=== PATIENT | female | born 1990 | race Caucasian/White ===

== ENCOUNTER 2023-12-10 05:20 | Inpatient (IN) ==
--- NOTE | 2023-11-21 14:03 | Anesthesiology Consultation ---
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 No known infectious disease contacts in past 10 days or current infectious disease symptoms. No recent travel outside the country. History Surgery Operation Date: 12/10/23 07:30 Proposed Procedures p Section in LD (Delivery of Baby through Abdominal Incision) - Jessica Acevedo MD, FACOG Height/Weight Height: 5 ft 2 in Weight: 84.822 kg Allergies Allergy/AdvReac Type Severity Reaction Status Date / Time Penicillins Allergy Unknown Unknown Unverified 11/21/23 12:48 acetaminophen [From Vicodin] Allergy Itching Verified 11/21/23 12:48 buspirone Allergy Vomiting Unverified 11/21/23 12:48 hydrocodone [From Vicodin] Allergy Itching Verified 11/21/23 12:48 Medications Home Medications Medication Instructions Recorded Confirmed Last Taken zrbubacwwx-oakuosfkkvnuf-zxappwqz 1 tab PO Q6H PRN pain #20 tabs 10/23/23 11/21/23 Unknown 50 mg-325 mg-40 mg tablet calcium carbonate 200 mg calcium 200 mg PO QID PRN Acid Reflux 11/21/23 11/21/23 Unknown (500 mg) chewable tablet (Antacid (calcium carbonate)) calcium carbonate 500 mg calcium 500 mg PO BID 11/21/23 11/21/23 Unknown (1,250 mg) tablet diazepam 10 mg tablet (Valium) 10 mg PO BID PRN anxiety 11/21/23 11/21/23 Unknown magnesium 250 mg tablet 250 mg PO QPM 11/21/23 11/21/23 Unknown vits,calcium 21-iron fum 1 tab PO QAM 11/21/23 11/21/23 Unknown 14 mg iron-folic acid 400 mcg tablet ( Complete) Past Medical History Medical History (Updated 11/21/23 @ 14:02 by Kamryn Shaw PA-C) Wtmmy-3-jkbprkdsafz deficiency Carrier trait per OB records Patient's sister with hx of liver transplant FOB was tested and is negative per OB records Anxiety Asthma no inh Chicken pox hx History of gestational diabetes Migraine Past Family History Family History Family/Other Ovarian cancer Grandfather (Paternal) Myocardial infarction Diabetes Hypertension Father Diabetes Hypertension Grandfather (Maternal) Diabetes Hypertension Grandmother Diabetes Hypertension Denies family history of Breast cancer Colorectal cancer Past Surgical History Surgical History S/P section x 3 S/P cholecystectomy S/P wisdom tooth extraction Social History Smoking Status: Former smoker Do You Dip or Chew Tobacco: No Smoking End Date: prior to Hx Alcohol Use: No (not while . drinks socially when not ) Hx Substance Use: No substance use type: does not use
--- NOTE | 2023-12-06 16:15 | History & Physical Report ---
Date of Service December 06, 2023 Assessment & Plan (1) Previous delivery affecting : Plan: IUP at 39 weeks who presents for repeat C/S because of prior C/S x 3. Procedure and risks were reviewed with the patient and all questions answered to her satisfaction. History of Present Illness Primary Care Provider: NO PCP Patient is a 33 yo female EDC 12/15/23 who presents at 39 weeks for repeat C/S. Sha has had 3 prior C/S elsewhere and reports she has had no complications during her surgeries or . has been complicated by ongoing headaches and panic attacks for which she takes valium for the panic attacks which she has gotten from a prior provider. the attacks occur about once weekly. she also takes Fioricet for headache which can be daily at times. GBS- negative. 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 Allergies Allergy/AdvReac Type Severity Reaction Status Date / Time Penicillins Allergy Unknown Unknown Unverified 12/05/23 09:50 acetaminophen [From Vicodin] Allergy Itching Verified 12/05/23 09:50 buspirone Allergy Vomiting Unverified 12/05/23 09:50 hydrocodone [From Vicodin] Allergy Itching Verified 12/05/23 09:50 Home Medications Medication Instructions Recorded Confirmed Type vdameaivvl-juadooathavyg-zsesoulf 1 tab PO Q6H PRN pain #20 tabs 10/23/23 12/05/23 Rx 50 mg-325 mg-40 mg tablet calcium carbonate 500 mg PO BID 11/21/23 12/05/23 History calcium carbonate (Antacid 200 mg PO QID PRN Acid Reflux 11/21/23 12/05/23 History (calcium carbonate)) diazepam 10 mg tablet (Valium) 10 mg PO BID PRN anxiety 11/21/23 12/05/23 History magnesium 250 mg tablet 250 mg PO QPM 11/21/23 12/05/23 History vits,calcium 21-iron fum 1 tab PO QAM 11/21/23 12/05/23 History 14 mg iron-folic acid 400 mcg tablet ( Complete) Patient History Medical History (Updated 11/21/23 @ 14:02 by Kamryn Shaw PA-C) Ltntb-5-scgyepyczqg deficiency Carrier trait per OB records Patient's sister with hx of liver transplant FOB was tested and is negative per OB records Asthma no inh History of gestational diabetes Chicken pox hx Anxiety Migraine Surgical History (Updated 12/06/23 @ 16:27 by Jessica Acevedo MD, FACOG) S/P wisdom tooth extraction S/P cholecystectomy S/P section x 3 Family History Family/Other Ovarian cancer Grandfather (Paternal) Myocardial infarction Diabetes Hypertension Father Diabetes Hypertension Grandfather (Maternal) Diabetes Hypertension Grandmother Diabetes Hypertension Denies family history of Breast cancer Colorectal cancer Social History Smoking Status: Former smoker Tobacco Type: Cigarettes and E-cigarettes / Vaping Second Hand Exposure: No; Do You Dip or Chew Tobacco: No; Hx Alcohol Use: No (not while . drinks socially when not ) Hx Substance Use: No Preferred Language: Yoruba Communication Ability: Effective Bog Cutter Required: No Beliefs That Will Affect Care: None marital status: marital status details: JENA [phone] Current Living Situation: Family and Significant Other Current Living Situation Comment: [place], 2 kids, 1 cat current occupational status: employed current occupation: Technology Professional Feels Safe at Home: Yes Assistive Devices: Contacts and Glasses Review of Systems All systems reviewed & are unremarkable except as noted in HPI & below Physical Exam Constitutional: WD/WN, vitals as above Respiratory: normal respiratory effort, lungs clear to auscultation Cardiovascular: RRR, no murmur, no edema Psychiatric: A+Ox3, euthymic affect Genitourinary: OB Exam Abdomen: + fundal height (term), + heart tones (150) and + vertex; no regular contractions Coding Level of Care Code None Diagnoses Previous delivery affecting O34.219
[~2023-12-10 05:20] MED LIST: ALLERGY Noted to ORDERED Medication SCH
[2023-12-10] MEDS ORDERED: LIDOCAINE 1% LOCAL 20 ML VIAL INFIL PRN (05:22)
[2023-12-10] MEDS ORDERED: OXYTOCIN 30 UNITS/NSS 30 UNITS/500 ML BAG IV PRN (05:22)
[2023-12-10] MEDS ORDERED: LACTATED RINGER'S 1,000 ML IV PRN (05:22)
[2023-12-10] MEDS: LACTATED RINGER'S 1,000 ML IV SCH ×2 (05:57→19:46)
[2023-12-10 06:15] LABS: Basophils # (auto) 0.06 K/uL (0.00-0.20); Basophils % (auto) 0.4 %; Eosinophils # (auto) 0.21 K/uL (0.00-0.50); Eosinophils % (auto) 1.5 %; Hematocrit (blood only) 31.3 % (37.0-47.0); Hemoglobin 10.6 g/dl (12.0-16.0); Immature Granulocytes # (auto) 0.08 K/uL (0.01-0.20); Immature Granulocytes % (auto) 0.6 %; Lymphocytes # (auto) 2.66 K/uL (1.20-3.40); Lymphocytes % (auto) 19.3 %; Mean Corpuscular Hemoglobin 29.2 pg (25.0-34.0); Mean Corpuscular Hgb Conc 33.9 g/dL (32.0-36.0); Mean Corpuscular Volume 86.2 fL (80.0-100.0); Mean Platelet Volume 11.2 fL (9.4-12.4); Monocytes # (auto) 0.91 K/uL (0.11-0.59); Monocytes % (auto) 6.6 %; Neutrophils # (auto) 9.85 K/uL (1.40-6.50); Neutrophils % (auto) 71.6 %; Platelet Count 284 K/uL (130-400); RDW Coefficient of Variation 13.2 % (11.5-14.5); Red Blood Count 3.63 M/uL (4.20-5.40); White Blood Count 13.77 K/ul (4.8-10.8)
[2023-12-10] MEDS ORDERED: SODIUM CHLORIDE 0.9% 250 ML IV PRN (06:16)
--- NOTE | 2023-12-10 07:09 | History & Physical Bridge Note ---
Date of Service December 10, 2023 History & Physical Bridge Note I have examined the patient, reviewed the History & Physical and in the interval since the performance of the History & Physical I have noted the following changes of clinical significance: no changes noted
[2023-12-10] MEDS ORDERED: Nursing to Pharmacy Communication SCH ×2 (07:30→13:45)
[2023-12-10] MEDS ORDERED: MoRPHine SULFATE PF 1 MG/ML 10 ML AMP/VIAL ONE (07:35)
[2023-12-10] MEDS ORDERED: ePHEDrine sulfate 50 MG/ML AMP IV PRN (07:38)
[2023-12-10] MEDS ORDERED: MEPERIDINE HCL 25 MG/ML CARP/VIAL IV PRN (07:38)
[2023-12-10] MEDS ORDERED: ONDANSETRON INJ 2 MG/ML 2 ML VIAL IV PRN (07:38)
[2023-12-10] MEDS ORDERED: PROMETHAZINE HCL 6.25 MG in SODIUM CHLORIDE 0.9% 50 ML IV PRN (07:38)
[2023-12-10] MEDS ORDERED: LACTATED RINGER'S 500 ML IV PRN (07:38)
[2023-12-10] MEDS ORDERED: METOCLOPRAMIDE HCL 10 MG in SODIUM CHLORIDE 0.9% 50 ML IV PRN (07:38)
[2023-12-10] MEDS ORDERED: NALOXONE HCL 0.4 MG/1 ML VIAL/CARP IV PRN (07:38)
[2023-12-10] MEDS ORDERED: HYDROmorphone INJ 0.5 MG/0.5 ML SYR IV PRN (07:38)
[2023-12-10] MEDS ORDERED: diphenhydrAMINE 50 MG/ML VIAL IV PRN (07:38)
[2023-12-10] MEDS ORDERED: NALOXONE HCL 0.08 MG in SYRINGE 1.8 ML IV PRN (07:38)
[2023-12-10] MEDS ORDERED: NALBUPHINE HCL 5 MG in SYRINGE 0 ML IV PRN (07:38)
[2023-12-10] MEDS ORDERED: NALOXONE HCL 1 MG in SODIUM CHLORIDE 0.9% 1,000 ML IV PRN (07:38)
[2023-12-10] MEDS ORDERED: ACETAMINOPHEN 1,000 MG/100 ML VIAL IV PRN (07:39)
[2023-12-10] MEDS: CITRIC ACID/SODIUM CITRATE 15 ML UDC PO SCH (07:43)
[2023-12-10] MEDS ORDERED: DC INTRASPINAL MORPHINE SCH (07:45)
[2023-12-10] MEDS ORDERED: NO NARCOTICS OR SEDATIVES SCH (07:45)
[2023-12-10] MEDS: ceFAZolin 2,000 MG in SYRINGE 0 ML IV SCH (07:57)
[2023-12-10] MEDS ORDERED: OXYTOCIN 10 UNITS/ML VIAL ONE (08:24)
[2023-12-10] MEDS ORDERED: PHENYLEPHRINE 100MCG/ML 10ML SYR IV ONE (08:24)
[2023-12-10] MEDS ORDERED: MIDAZOLAM HCL 1 MG/ML 2ML VIAL ONE ×2 (08:34→08:43)
--- NOTE | 2023-12-10 09:01 | Post Operative Brief Note ---
PG Immediate Post Op with CF Date of Surgery December 10, 2023 Pre & Post Diagnosis Pre Operation Date: 12/10/23 07:30 <No data on this case meets the specified criteria> Pre-Operative DX- IUP at 39 weeks-prior C/S X 3 Post-Operative DX- same plus delivery of viable female infant I identified the patient and participated in the time-out.: Yes Procedure Operation Date: 12/10/23 07:30 <No data on this case meets the specified criteria> Surgeon Jessica Acevedo MD, FACOG Certified Real Estate Appraiser Catalina Garcia MD Estimated Blood Loss 240 (QBL) Findings Consistent with Post-Op Diagnosis adherence of rectus muscles to uterine wall. gravid uterus consistent with term , ovaries and tubes not visualized as uterus could not be exteriorized Specimens Specimen Description: A: Placenta B: Cord Blood Drains Kennedy Catheter Anesthesia Type Spinal Complications none Disposition Accompanied Patient To Recovery: Yes Disposition: L&D
--- NOTE | 2023-12-10 09:37 | Operative Report ---
PG Post Operative Report Pre & Post Diagnosis Operation Date: 12/10/23 07:30 <No data on this case meets the specified criteria> I identified the patient and participated in the time-out.: Yes Procedure Operation Date: 12/10/23 07:30 <No data on this case meets the specified criteria> Repeat low transverse section lysis of adhesions Surgeon Jessica Acevedo MD, FACOG Jewel Stringer Catalina Garcia MD Estimated Blood Loss 240 (QBL) Findings Consistent with Post-Op Diagnosis Gravid uterus consistent with term in size. There were dense adhesions of the rectus muscles bilaterally. The midline was not adherent but the rectus muscles were densely adherent on the lateral sides of the uterus. As a result, the fallopian tubes and ovaries could not be evaluated nor could the uterus be exteriorized. Specimens Placenta to hold Drains Kennedy catheter to straight drainage- clear urine at end of case Anesthesia Type Spinal Complications none Disposition Accompanied Patient To Recovery: Yes Disposition: L&D Indications previous LTCS x 3 Description of Procedure After the patient received adequate spinal anesthetic, she was prepped and draped in usual sterile fashion. Low transverse skin incision was made with a scalpel and carried to the fascia with the same scalpel. Fascial incision was then extended with Valderrama scissors. The rectus muscles were then bluntly sharply taken off of the overlying fascia. The rectus muscle were then sharply divided on the midline first with a scalpel and then Valderrama scissors. The peritoneum was elevated and entered bluntly. At this point it was noted that the rectus muscles were densely adherent to the uterine wall. Attempt to at the rectus muscle from the uterine serosa resulted in entering the uterus on the midline. The uterine incision was then extended with stretching in a cephalad and caudad direction. Membranes were then ruptured for clear fluid. Moderate fundal pressure and the Kiwi vacuum device was used to deliver the from the vertex presentation. A loose nuchal cord on delivery was reduced prior to delivering the rest of the . She was vigorous crying and moving all 4 limbs upon delivery. The cord was then clamped and cut and she was handed off to Dr. Rapp who was in attendance as chemist physical. The placenta was then expressed intact with a three-vessel cord. The uterine cavity was explored and found be free of any placental tissue or membranes. The bleeding was controlled with fundal massage and dilute Pitocin. The uterus could not be exteriorized because of the dense adhesions from the rectus muscles bilaterally. However the right rectus muscle was freed from the uterus with the Bovie and b shivani dissection. The fundus of the uterus could be palpated at this point but the adhesions of the rectus muscle to the left anterior abdominal wall were dense and therefore not dissected. The uterus incision was then closed in 1 layer with 0 Monocryl in a running locking imbricating fashion. Bleeding on the midline of the incision was secured with an additional 0 Monocryl suture. This point hemostasis was noted to be excellent on the uterine incision. Bleeding on the bladder reflection was controlled with the Bovie and Camille. This point hemostasis noted to be satisfactory. The gutters were not explored as they were not accessible because of adhesions. The fascia was then closed in a running fashion with 0 Vicryl. Skin edges were reapproximated with a subcuticular stitch of 4-0 Vicryl after irrigating the subcutaneous layer. Patient tolerated procedure well was stable upon arrival back in labor and delivery. I attest to the content of the Intraoperative Record and any orders documented therein. Any exceptions are noted below. OB Procedure Charges 99152
[2023-12-10] MEDS: KETOROLAC 30 MG/ML VIAL IV PRN (09:45)
[2023-12-10] MEDS: MoRPHine SULFATE 2 MG/ML CARP IV PRN (10:05)
[2023-12-10] MEDS ORDERED: BENZOCAINE 20% SPRY 85 APPLN/85 GM CAN EXT PRN (10:17)
[2023-12-10] MEDS ORDERED: MAGNESIUM HYDROXIDE SUSP 30 ML UDC PO PRN (10:17)
[2023-12-10] MEDS ORDERED: HYDROCORTISONE ACETATE 25 MG SUPP PR PRN (10:17)
[2023-12-10] MEDS ORDERED: SENNA 8.6 MG TAB PO PRN (10:17)
[2023-12-10] MEDS: OXYTOCIN 20 UNITS/LR 1,002 ML IV SCH (10:49)
--- NOTE | 2023-12-10 12:07 | Anesthesiology Progress Note ---
Date of Service December 10, 2023 Anesthesia Post Procedure Vital Signs Vital Signs: Temp Pulse Resp BP Pulse Ox 12/10/23 11:10 36.4 C L 79 98 12/10/23 11:09 79 98 12/10/23 11:04 76 99 12/10/23 10:59 75 99 12/10/23 10:54 79 98 12/10/23 10:49 78 97 12/10/23 10:44 76 98 12/10/23 10:40 78 97 12/10/23 10:39 80 98 12/10/23 10:37 79 91/53 L 12/10/23 10:34 79 98 12/10/23 10:29 78 98 12/10/23 10:28 75 104/53 L 12/10/23 10:24 79 98 12/10/23 10:19 78 99 12/10/23 10:18 76 111/66 12/10/23 10:14 76 98 12/10/23 10:10 80 98 12/10/23 10:10 36.4 C L 16 12/10/23 10:09 83 97 12/10/23 10:08 74 116/58 L 12/10/23 10:04 73 97 12/10/23 09:59 78 98 12/10/23 09:54 87 99 12/10/23 09:50 79 98 12/10/23 09:49 79 98 12/10/23 09:44 80 98 12/10/23 09:40 87 97 12/10/23 09:39 87 97 12/10/23 09:38 82 110/66 12/10/23 09:34 86 97 12/10/23 09:30 94 H 97 12/10/23 09:29 94 H 97 12/10/23 09:28 91 H 108/63 12/10/23 09:24 86 97 12/10/23 09:20 91 H 108/63 12/10/23 09:19 91 H 98 12/10/23 09:14 87 97 12/10/23 09:10 91 H 108/63 12/10/23 09:10 36.4 C L 91 H 98 12/10/23 09:09 91 H 98 12/10/23 09:04 94 12/10/23 09:04 89 12/10/23 09:04 89 109/66 12/10/23 09:00 86 97 12/10/23 05:59 16 12/10/23 05:34 36.7 C 90 119/72 Pain Intensity Bilateral Abdomen: Pain Intensity: 2 Transfer of Care Handoff Completed per policy Notes Mental Status: alert / awake / arousable and participated in evaluation Nausea / Vomiting: adequately controlled Pain: adequately controlled Airway Patency, RR, SpO2: stable & adequate BP & HR: stable & adequate Hydration State: stable & adequate Neuraxial Anesthesia: was administered and sensory block is resolving Anesthetic Complications: no major complications apparent and Pt Satisfied with anesthetic care
[2023-12-10] MEDS: SIMETHICONE 80 MG CHEW PO SCH (13:51)
[2023-12-10] MEDS: diazePAM 5 MG TABLET PO PRN (13:52)
[2023-12-10] MEDS: SODIUM CHLORIDE 0.9% 1,000 ML IV SCH (19:45)
[2023-12-10] MEDS: MoRPHine SULFATE PF 1 MG/ML 10 ML AMP/VIAL INT SPINAL ONE (19:45)
[2023-12-10] MEDS: OXYTOCIN 30 UNITS/1003ML LR IV ONE (19:46)
[2023-12-10] MEDS: OXYTOCIN 20 UNITS/1002ML LR IV ONE (19:47)
[2023-12-10] MEDS: DOCUSATE SODIUM 100 MG CAP PO SCH (21:16)
[2023-12-10] MEDS: DIPHTHER/TETAN/PERTUS Vaccine (Tdap, Adol/Adult) 0.5mL IM ONE (23:52)
[2023-12-11] MEDS ORDERED: diazePAM 5 MG TABLET PO PRN (01:39)
[2023-12-11] MEDS ORDERED: diphenhydrAMINE 50 MG/ML VIAL IV PRN (01:39)
[2023-12-11] MEDS ORDERED: diphenhydrAMINE Capsule 25 MG CAP PO PRN (01:39)
[2023-12-11] MEDS ORDERED: MEPERIDINE HCL 50 MG/ML CARP IV PRN (01:39)
[2023-12-11] MEDS ORDERED: PROMETHAZINE HCL 25 MG in SODIUM CHLORIDE 0.9% 50 ML IV PRN (01:39)
[2023-12-11] MEDS ORDERED: ONDANSETRON INJ 2 MG/ML 2 ML VIAL IV PRN (01:39)
[2023-12-11] MEDS ORDERED: KETOROLAC 30 MG/ML VIAL IV PRN (01:39)
[2023-12-11] MEDS ORDERED: guaiFENesin/DEXTROM SYRUP 100MG/10MG 5ML UDC PO PRN (01:39)
[2023-12-11] MEDS: IBUPROFEN 600 MG TAB PO PRN (04:20)
--- NOTE | 2023-12-11 06:17 | Obstetrical Progress Note ---
Date of Service December 11, 2023 Assessment & Plan (1) Encounter for care after hospital delivery: Plan 33 yo [id number] Pod #1 s/p C section Continue post care Feels well today. Encourage ambulation and Hgb stable, rubella immune Pain well controlled with ibuprofen Admission and Anticipated Discharge Date Admission Date: December 10, 2023 Supervising Physician Co-Signing Physician Notes Resident Physician Supervision Note: I interviewed and examined the patient. Discussed with [Name of resident] and agree with findings and plan as documented in the note. Any exceptions or clarifications are listed here: [None] Documented By: Adilene Turner MD, FACOG Subjective 33 yo [id number] Pod #1 s/p C section Ambulation: ambulating normally Voiding: no voiding problems Passing Gas:: Yes Diet Tolerance:: regular diet Lochia:: Small Feeding Type: breast feeding Current Pain Level: controlled Resting comfortably this AM in NAD. Denies LEGER, CP, SOB, N/V/D, LE pain/swelling. Review of Systems Review of Systems: as per hpi Physical Exam Physical Exam: General: patient resting comfortably, NAD, non-toxic in appearance, AA&O x 4, answers questions appropriately. Skin: warm, dry, intact HEENT: NC/AT, anicteric sclera, conjunctiva without injection, moist mucus membranes. Heart: +S1/S2, regular, no m/r/g Lungs: equal air entry bilaterally, no rales/rhonchi/wheezes Abd: +BS, soft, NT/ND, uterine fundus firm at umbilicus Ext: warm, no clubbing/cyanosis or edema, Molly's neg. Neuro: nonfocal, patient AA&O x 4, speech intact, no facial droop, moving all extremities on command. Results & Data Vital Signs (Past 12 Hours) Vital Signs Temp Pulse Resp BP Pulse Ox O2 Del Method 12/11/23 04:05 36.5 C 89 18 105/68 97 Room Air 12/11/23 01:15 36.6 C 89 18 102/62 95 Room Air 12/11/23 01:15 18 97 12/10/23 23:45 18 95 12/10/23 22:40 18 94 12/10/23 21:45 20 97 12/10/23 20:45 36.5 C 90 20 100/68 98 Room Air 12/10/23 19:45 18 98 12/10/23 18:45 18 100 Resident Activity Tracking Resident Involvement: Resident Care Provided Care Provided: OB Delivery
[2023-12-11 06:30] LABS: Basophils # (auto) 0.03 K/uL (0.00-0.20); Basophils % (auto) 0.2 %; Eosinophils % (auto) 1.4 %; Hematocrit (blood only) 29.8 % (37.0-47.0); Hemoglobin 10.1 g/dl (12.0-16.0); Immature Granulocytes % (auto) 0.7 %; Lymphocytes # (auto) 1.68 K/uL (1.20-3.40); Lymphocytes % (auto) 11.9 %; Mean Corpuscular Hgb Conc 33.9 g/dL (32.0-36.0); Mean Corpuscular Volume 85.6 fL (80.0-100.0); Mean Platelet Volume 11.1 fL (9.4-12.4); Monocytes # (auto) 0.87 K/uL (0.11-0.59); Monocytes % (auto) 6.2 %; Neutrophils # (auto) 11.26 K/uL (1.40-6.50); Neutrophils % (auto) 79.6 %; Platelet Count 244 K/uL (130-400); RDW Coefficient of Variation 13.2 % (11.5-14.5); RDW Standard Deviation 41.4 fL (36.4-46.3); Red Blood Count 3.48 M/uL (4.20-5.40); White Blood Count 14.14 K/ul (4.8-10.8)
[2023-12-11] MEDS: PRENATAL VITAMIN 1 TAB PO SCH (07:52)
[2023-12-11] MEDS: oxyCODONE/ACETAMINOPHEN 5mg/325mg TAB PO PRN (07:53)
[2023-12-11] MEDS: FERROUS SULFATE 325 MG TAB PO SCH (07:54)
[2023-12-11] MEDS: FLUTICASONE PROPIONATE NA SPR 16 GM BTL SCH (07:56)
[2023-12-11] MEDS: bisacodyL 5 MG TABEC PO SCH (20:17)
--- NOTE | 2023-12-12 05:58 | Obstetrical Progress Note ---
Date of Service December 12, 2023 Assessment & Plan (1) Encounter for care after hospital delivery: Plan 33 yo [id number] Pod #2 s/p C section Continue post care Feels well today. Encourage ambulation and Hgb stable, rubella immune Pain well controlled with ibuprofen Admission and Anticipated Discharge Date Admission Date: December 10, 2023 Supervising Physician Co-Signing Physician Notes Patient seen with resident and agree with the above findings and plan. Stable for discharge. Subjective 33 yo [id number] Pod #2 s/p C section Ambulation: ambulating normally Voiding: no voiding problems Passing Gas:: Yes Diet Tolerance:: regular diet Lochia:: Small Feeding Type: breast feeding Current Pain Level: controlled with ibuprofen Resting comfortably this AM in NAD. Denies LEGER, CP, SOB, N/V/D, LE pain/swelling. Review of Systems Review of Systems: as per hpi Physical Exam Physical Exam: General: patient resting comfortably, NAD, non-toxic in appearance, AA&O x 4, answers questions appropriately. Skin: warm, dry, intact HEENT: NC/AT, anicteric sclera, conjunctiva without injection, moist mucus membranes. Heart: +S1/S2, regular, no m/r/g Lungs: equal air entry bilaterally, no rales/rhonchi/wheezes Abd: +BS, soft, NT/ND, uterine fundus firm at umbilicus Ext: warm, no clubbing/cyanosis or edema, Molly's neg. Neuro: nonfocal, patient AA&O x 4, speech intact, no facial droop, moving all extremities on command. Results & Data Vital Signs (Past 12 Hours) Vital Signs Temp Pulse Resp BP O2 Del Method 12/12/23 00:30 36.4 C L 85 16 115/77 Room Air 12/11/23 19:34 36.7 C 92 H 16 129/83 Room Air Resident Activity Tracking Resident Involvement: Resident Care Provided Care Provided: OB Delivery
[2023-12-12 07:32] LABS: Hematocrit (blood only) 28.4 % (37.0-47.0); Hemoglobin 9.5 g/dl (12.0-16.0)
[2023-12-12] MEDS ORDERED: bisacodyL 10 MG SUPP PR PRN (08:50)
--- NOTE | 2023-12-12 12:14 | Communication Note ---
Date of Service: December 12, 2023 No percocet script sent, system has been down. Tried to print script, help desk notified that i need help. Pt checked on PAPDMP and no issues identified.
--- NOTE | 2023-12-13 16:41 | Discharge Summary ---
Date of Service December 13, 2023 Admission HPI Per Admitting Provider Patient is a 33 yo female EDC [birth year]/15/[birth year] who presents at 39 weeks for repeat C/S. Theron has had 3 prior C/S elsewhere and reports she has had no complications during her surgeries or . has been complicated by ongoing headaches and panic attacks for which she takes valium for the panic attacks which she has gotten from a prior provider. the attacks occur about once weekly. she also takes Fioricet for headache which can be daily at times. GBS- negative. 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 Admission Exam (Per Admitting) Constitutional WD/WN, vitals as above Respiratory normal respiratory effort, lungs clear to auscultation Cardiovascular RRR, no murmur, no edema Psychiatric A+Ox3, euthymic affect Genitourinary OB Exam Abdomen: + fundal height (term), + heart tones (150) and + vertex; no regular contractions Discharge Data Consultations 12/10/23 05:22 Consult Anesthesiology Stat Consult Anesthesiology Stat Procedures Performed Operation Date: 12/10/23 07:30 Actual Procedures p Section in LD (Delivery of Baby through Abdominal Incision)with delivery of live female child at 0814 - Jessica Acevedo MD, FACOG Discharge Plan Discharge Items Patient Disposition: Home - Self-Care Reason For Visit: History of Section Discharge Diagnosis: Post section Activity: Per Instructions section Non-emergency contact: Lead Tinner Call non-emergency contact if: you have any medication questions, your pain is unusual for you, your temperature is above 101 and your wound has increased drainage Follow-up/Referrals: PCP,NO [Primary Care Provider] - Diet: Regular Addtl Attending Provider Instructions: ACTIVITY RECOMMENDATIONS: * Gradual return to full activity over the next 2-3 weeks. * No lifting - nothing heavier than baby over the next 2-3 weeks. * Do not engage in vigorous exercise, sexual activity or sports until cleared by your physician. * Do not drive or operate any motorized equipment until cleared by your physician. * You may shower/bathe daily. MEDICATIONS: For discomfort or pain, you may use Acetaminophen (Tylenol), Ibuprofen (Advil), or Naproxen (Aleve) following the package directions. For constipation you may use Colace following the package directions. BREAST CARE: If you are not breast feeding: * Wear a supportive bra 24 hours a day for one to two weeks. * Avoid stimulating your breasts and nipples as much as possible during the first few weeks after delivery. * When taking a shower, have the warm water hit your back, not breasts. * When your breasts feel full, apply ice packs. Usually three to four times a day helps ease the discomfort. * Take a mild pain medication (Tylenol / Motrin) when you are uncomfortable. If breast feeding: * Use breast milk to lubricate nipples. Lansinoh cream may be used for sore nipples. You do not need to remove cream prior to breast feeding. If using a different brand of cream, check the label for directions regarding removal of cream prior to nursing. * Wear a supportive bra. * If having problems with breasts or breast feeding, call a sr. consultant or your health care provider. SPECIAL CARE INSTRUCTIONS: When you are discharged from the hospital, it is important for you to follow the instructions listed below: * During the first week at home, you should be able to care for yourself and your baby. In addition, the usual light household activities are encouraged. * Limit your activities to the way you feel. Do not try to clean the house or move furniture. Be sensible. * If you actively engage in sports and have done so up until the time of your delivery, you may resume these activities as soon as you feel able. This may take up to one month or even longer. Use good judgment. * Continue to take your vitamins for at least six weeks after the of your baby. * Your diet need not be limited unless you were on a special diet before your delivery. Breast-feeding mothers need around 2500 calories per day and at least 64-80 ounces of fluid per day (8 to 10 glasses). * You should eat foods from the four major food groups. Crash diets or fad diets are to be avoided. Eating lean meats, fresh fruits and vegetables, low-fat dairy products, high fiber foods and a regular exercise program, will help you get back to your pre- weight without putting your health at risk. * Constipation is sometimes a problem after delivery. Take a mild laxative as needed. If breast feeding, Milk of Magnesia is acceptable to use. You may use a suppository or Fleets enema. * A daily shower or tub bath is suggested. Wash incision daily with warm soapy water and pat dry. It doesn't need to be covered unless drainage is present. * A bloody vaginal discharge will usually continue until around four weeks . A small amount of bleeding may continue for as long as six weeks. Vaginal discharge changes from the bright red bleeding after delivery to pink then brownish and finally yellowish-pink before becoming white and disappearing. * Bleeding may increase with activity. Your first period may come in 4-8 weeks. If you are breast feeding, your period may be delayed even longer. * [place] (sex) can begin whenever both you and your partner feel comfortable and do not have any form of genital infection. It is recommended that you wait at least six weeks for internal and external healing to occur. If you have questions, please talk to your health care practitioner. A condom should be used to prevent infection and . * Foreplay, gentle intercourse and lubrication is very important the first several times to prevent pain. A water-based lubricant such as K-Y jelly or Astroglide may be used. * If you have RH negative blood and your baby is RH positive, you will receive RHOGAM by injection prior to discharge. The nurse will give you a card to keep with you that has the date and place that you received RHOGAM after delivery. * During your care, you had a Rubella screen done to check for the presence of rubella antibodies in your blood. If your test was negative, you will receive a Rubella vaccine prior to discharge. This vaccine may cause a fever, soreness at the injection site and flu-like symptoms. If these symptoms persist, notify your health care practitioner. is not advised for one month after a Rubella vaccine. * Verbalizes understanding of car seat law as reviewed with patient nursing. * Car Seat hand-out given and reviewed with patient by nursing. * Shaken baby information reviewed with patient by nursing. Call you doctor if: * Heavy bleeding (saturating several pads an hour) or passing clots the size of your fist. * A fever >101 degrees F (38.3 degrees C) on two occasions four hours apart and/or chills. * Unusual pain in the pelvic or vaginal areas. * Call the doctor for any increased redness, drainage or swelling around the incision and any pain unrelieved by prescribed pain medication. * "Baby Blues" lasting longer than two weeks. If you have any questions or concerns, call your health care practitioner at . FOLLOW UP VISIT: * Please call the office at to schedule a 6 week examination. It is important you keep this appointment. It is important for you to make arrangements for either yearly or twice yearly check-ups thereafter. Pending Studies at Discharge: No Stand-Alone Forms: My [facility], Smoking Cessation Medications and DC Order Prescriptions: New oxycodone-acetaminophen [Percocet] 5-325 mg Tablet 1 tab PO Q4H PRN (Reason: Pain) Qty: 12 0RF Continued [id number]-[id number] 50-325-40 mg tablet 1 tab PO Q6H PRN (Reason: pain) Qty: 20 2RF calcium carbonate 500 mg calcium (1,250 mg) Tablet 500 mg PO BID magnesium 250 mg Tablet 250 mg PO QPM diazepam [Valium] 10 mg Tablet 10 mg PO BID PRN (Reason: anxiety ) calcium carbonate [Antacid (calcium carbonate)] 200 mg calcium (500 mg) Tablet,Chewable 200 mg PO QID PRN (Reason: Acid Reflux) Complete 14 mg iron- 400 mcg Tablet 1 tab PO QAM Discharge Orders: Discharge Order (Routine); Ordered 12/12/23 Ordered By: Abhilash Yu/Other Patient Handouts: Preventing Deep Vein Thrombosis, Understanding Depression Admission Data Admit Date/Time: 12/10/23 05:20 Attending Provider: Jessica Acevedo Admit Provider: Jessica Acevedo Primary Care Provider: PCP,NO Other Providers: Itz Reynolds Other Interventions: Discharge Summary Assessment (RN) Last Done: 12/12/23 10:52 Coding Level of Care Code 10284 IN/OBS DISCH 30 MIN/LESS
== END 2023-12-12 13:15 | disposition home or self-care (01) | DRG 788 ==
LOC: 4S1 05:20 → EDSTATUS 07:30 → 4E2 11:46